=== PATIENT | male | born 1960 | race Hispanic/Latino ===

== ENCOUNTER 2018-09-08 07:33 | Day surgery (SDC) | payer BC ==
[~2018-09-08] VITALS: Ht 175.3 cm; Wt 138.3 kg
[2018-09-08] VITALS (7 sets, daily range): BP systolic 130–143; BP diastolic 78–84
[~2018-09-08 07:33] MED LIST: SODIUM CHLORIDE 0.9% 1000ML 1,000 ML IV ONE
[2018-09-08] MEDS ORDERED: GLIM4TAB3 PO (09:08)
[2018-09-08] MEDS ORDERED: ROSU10TA28 PO (09:08)
[2018-09-08] MEDS ORDERED: FURO40TA5 PO (09:08)
[2018-09-08] MEDS ORDERED: OMEGA 3 ACID PO (09:08)
[2018-09-08] MEDS ORDERED: ISOS30TA6 PO (09:08)
[2018-09-08] MEDS ORDERED: LINA5TAB PO (09:08)
[2018-09-08] MEDS ORDERED: GABA-531 PO ×3 (09:08→09:09)
[2018-09-08] MEDS ORDERED: CARV25TA PO ×2 (09:08)
[2018-09-08] MEDS ORDERED: APIX2.5T PO (09:08)
--- NOTE | 2018-09-08 11:00 | NUR ---
dc pt dc home via w[place], no distress noted. denies any pain or discomforts. accompanied by spouse,
== END 2018-09-08 11:00 | disposition home or self-care (01) ==
LOC: DAH 07:33 → ENDO 07:33
PROVIDERS: ATTEND Surgery
DX: K29.50 Unspecified chronic gastritis without bleeding (principal); B96.81 Helicobacter pylori [H. pylori] as the cause of diseases classified elsewhere; K21.9 Gastro-esophageal reflux disease without esophagitis; I44.7 Left bundle-branch block, unspecified; G47.30 Sleep apnea, unspecified; I10 Essential (primary) hypertension; I25.2 Old myocardial infarction; Z95.0 Presence of cardiac pacemaker; E66.01 Morbid (severe) obesity due to excess calories; Z86.73 Personal history of transient ischemic attack (TIA), and cerebral infarction without residual deficits; E11.9 Type 2 diabetes mellitus without complications; N28.1 Cyst of kidney, acquired; Z90.49 Acquired absence of other specified parts of digestive tract; Z88.8 Allergy status to other drugs, medicaments and biological substances; Z68.41 Body mass index [BMI] 40.0-44.9, adult
CPT/HCPCS: 43239; 82948 ×2; 88305; 93005; A4606; J7030